=== PATIENT | female | born 1965 | race African-American/Black ===

== ENCOUNTER 2018-02-03 12:17 | Emergency (ER) | payer SELFPAY ==
[2018-02-03 12:22] VITALS: TEMP 97.8; BMI 29.2
[2018-02-03] MEDS ORDERED: ONDANSETRON 4 MG/2 ML VIAL IVPUSH ONE (13:03)
[2018-02-03] MEDS ORDERED: SODIUM CHLORIDE 1,000 ML IV STA (13:03)
[2018-02-03] MEDS ORDERED: FAMOTIDINE 20 MG/50 ML IVPB 20 MG/50 ML MG IVPB ONE ×2 (13:03→13:16)
[2018-02-03] MEDS ORDERED: MAG HYDROX/AL HYDROX/SIMETH -MYLANTA- ORAL SUSPENSION PO ONE (13:05)
--- NOTE | 2018-02-03 13:10 | PDOC ---
History of Present Illness - General Chief Complaint: Pain Stated Complaint: ABD PAIN, RT ARM PAIN Time Seen by Provider: 02/03/18 12:52 History Source: Patient Exam Limitations: No Limitations - History of Present Illness Initial Comments: 02/03/18 13:09 Patient is a 52F with history of pituitary tumor (on cabergoline) here today complaining of epigastric pain and neck pain. She describes the epigastric abdominal pain that as a burning that has been a problem for over a month. She states the pain often wakes her up at night. She denies pain with urination. Denies fevers, chills, vomiting, constipation diarrhea. She describes her neck pain as a shooting pain that goes to her left hand. She denies focal weakness. She says she has been diagnosed with radiculopathy. She states that her neck pain has been an issue for months. She says that she takes a large amount of ibuprofen and aspirin for her pain, but this has not improved her pain. Past History - Past Medical History Allergies/Adverse Reactions: Allergies Allergy/AdvReac Type Severity Reaction Status Date / Time No Known Allergies Allergy Verified 02/03/18 12:22 Home Medications: Ambulatory Orders Cabergoline 0.25 mg PO ASDIR 01/12/15 COPD: No Other medical history: pituitary benign tumor - Suicide/Smoking/Psychosocial Hx Smoking History: Never smoked Have you smoked in the past 12 months: No Hx Alcohol Use: No Substance Use Type: None Review of Systems - Review of Systems Comments:: 02/03/18 13:18 GENERAL/CONSTITUTIONAL: No fever or chills. No weakness. HEAD, EYES, EARS, NOSE AND THROAT: No change in vision. No sore throat. CARDIOVASCULAR: No chest pain or shortness of breath RESPIRATORY: No cough, wheezing, or hemoptysis. GASTROINTESTINAL: Positive for nausea. Negative for vomiting, diarrhea or constipation. GENITOURINARY: No dysuria, frequency, or change in urination. MUSCULOSKELETAL: No joint or muscle swelling or pain. Positive for neck pain. SKIN: No rash NEUROLOGIC: No headache, vertigo, loss of consciousness, or change in strength/ sensation. ENDOCRINE: No increased thirst. No abnormal weight change ALLERGIC/IMMUNOLOGIC: No hives or skin allergy. *Physical Exam - Vital Signs Last Vital Signs Temp Pulse Resp BP Pulse Ox 97.8 F 87 18 154/101 99 02/03/18 12:20 02/03/18 12:20 02/03/18 12:20 02/03/18 12:20 02/03/18 12:20 - Physical Exam Comments: 02/03/18 13:19 GENERAL: Awake, alert, and fully oriented, in no acute distress HEAD: No signs of trauma, normocephalic, atraumatic EYES: PERRLA, EOMI, sclera anicteric, conjunctiva clear ENT: Auricles normal inspection, hearing grossly normal, nares patent, oropharynx clear without exudates. Moist mucosa NECK: Normal ROM, supple, no lymphadenopathy, JVD, or masses LUNGS: No distress, speaks full sentences, clear to auscultation bilaterally HEART: Regular rate and rhythm, normal S1 and S2, no murmurs, rubs or gallops, peripheral pulses normal and equal bilaterally. ABDOMEN: Soft, nontender. No guarding, no rebound. No masses EXTREMITIES: Normal inspection, Normal range of motion, no edema. No clubbing or cyanosis. NEUROLOGICAL: Cranial nerves II through XII grossly intact. Normal speech, normal gait, no focal sensorimotor deficits SKIN: Warm, Dry, normal turgor, no rashes or lesions noted. ED Treatment Course - LABORATORY CBC & Chemistry Diagram: 02/03/18 13:15 02/03/18 13:15 Medical Decision Making - Medical Decision Making 02/03/18 13:21 Patient is 52F with history of pituitary adenoma here today with neck and abdominal pain. Vital signs stable and normal. Nontender on exam. Believe pain is not cardiac, but only way to link the neck and epigastric pain is with a cardiac etiology. Very low risk, no chest pain. Abdominal pain most likely gastritis secondary to nsaid use, will evaluate for pancreatitis, uti, pyelo with abdominal labs. Will do troponin, ekg, and cxr. Will treat with fluids, zofran, maalox, pepcid. Do not believe neck pain has emergent etiology with chronic nature. 02/03/18 13:24 EKG shows normal sinus rhythm with rate of 95. No st elevations or depressions, poor baseline in I, II, III. Normal TN/QRS/QTc. 02/03/18 13:59 CXR shows no acute pathology. 02/03/18 14:17 Laboratory Tests 02/03/18 02/03/18 02/03/18 13:15 13:15 13:15 WBC 5.2 Hgb 15.3 D Hct 44.6 Plt Count 280 D BUN 12 Creatinine 0.9 Calcium 10.8 H Troponin I Urine WBC (Auto) 1 Urine RBC (Auto) None 02/03/18 13:15 WBC Hgb Hct Plt Count BUN Creatinine Calcium Troponin I < 0.02 Urine WBC (Auto) Urine RBC (Auto) CBC normal. CMP reassuring, but calcium slightly elevated. Troponin undetectable. 02/03/18 14:21 Patient states that she feels better, asking to go home. Advised against taking large amounts of NSAIDs in the future and advised to follow up with her primary care provider. *DC/Admit/Observation/Transfer Diagnosis at time of Disposition: Abdominal pain - Discharge Dispostion Disposition: HOME Condition at time of disposition: Good Admit: No - Referrals - Patient Instructions Printed Discharge Instructions: DI for Acute Abdomen Additional Instructions: You were seen today in the ED for abdominal pain and neck pain. Please return if you have any new, worsening or concerning symptoms. Please limit how much ibuprofen and aspirin that you take in the future, as these were contributing to your abdominal pain. Please try taking tylenol, as directed on the label, instead. Please call your primary care provider to follow up on you neck pain on Monday. - Post Discharge Activity
--- NOTE | 2018-02-03 13:13 | PDOC ---
Attending Attestation - Resident Resident Name: Ariel Painting - ED Attending Attestation I have performed the following: I have examined & evaluated the patient, The case was reviewed & discussed with the resident, I agree w/resident's findings & plan, Exceptions are as noted - HPI HPI: 02/03/18 16:43 This is a 52-year-old female with no significant past medical history presented to emergency department with a complaint of epigastric pain. Patient states she's had these symptoms for some time, however they're worsening. She notes left upper extremity pain, radiating from her neck. Patient denies any head or neck trauma. Patient denies motor vehicle collision. Patient denies weakness or numbness. Patient states she takes lots of Motrin, aspirin for her pain. No prior GI workup. - Physicial Exam PE: 02/03/18 16:44 Upon my assessment, patient states she feels much better, epigastric pain has completely resolved GENERAL: The patient is in no acute distress. LUNGS: Breath sounds equal, clear to auscultation bilaterally. No wheezes, and no crackles. HEART:Regular rate and rhythm, normal S1 and S2 without murmur, rub or gallop. ABDOMEN: Soft, nontender, normoactive bowel sounds. EXTREMITIES: Normal range of motion, no edema. No clubbing or cyanosis. No erythema, or tenderness. NEUROLOGICAL: Cranial nerves II through XII grossly intact. Normal speech. No focal neurological deficits. - Medical Decision Making 02/03/18 16:45 This is a 52-year-old female presented to emergency department with a complaint of epigastric pain which has been chronic and worsening. Patient also reports left upper extremity pain. Left upper extremity pain is impressive for more than 1 year, she was previously seen at an urgent care for this, has not followed up with her primary care physician. Patient's epigastric pain seems likely to be due to gastritis related to NSAID use Patient has a limited NSAID use. Patient asked to take PPI Follow up with PMD 02/03/18 17:00 EKG: Sinus rhythm, rate of 63 bpm, axis is normal Intervals are normal, no ST elevations or depression, T waves are nonischemic
[2018-02-03] MEDS ORDERED: MAG HYDROX/AL HYDROX/SIMETH 30 ML UNIT-DOSE CUP ONE (13:15)
[2018-02-03] MEDS ORDERED: ONDANSETRON 4 MG/2 ML VIAL ONE (13:15)
[2018-02-03 13:19] LABS: BASO % 0.7 % (0-2.0); EOS % 3.1 % (0-4.5); HEMATOCRIT 44.6 % (32.4-45.2); HEMOGLOBIN 15.3 GM/dL (10.7-15.3); LYMPH % 52.2 % (8-40); MCH 30.8 pg (25.7-33.7); MCHC 34.3 g/dl (32.0-36.0); MEAN PLT VOLUME 8.6 fl (7.5-11.1); MONO % 7.7 % (3.8-10.2); NEUT % 36.3 % (42.8-82.8); PLATELET COUNT 280 K/MM3 (134-434); RBC 4.96 M/mm3 (3.60-5.2); RDW 12.8 % (11.6-15.6); WHITE BLOOD COUNT 5.2 K/mm3 (4.0-10.0)
[2018-02-03 13:21] LABS: URINE APPEARANCE CLEAR; URINE BILIRUBIN NEGATIVE (<2.0 mg/dL); URINE BLOOD NEGATIVE (NEGATIVE); URINE COLOR YELLOW; URINE GLUCOSE (UA) NEGATIVE (NEGATIVE); URINE KETONE TRACE (NEGATIVE); URINE LEUK ESTERASE TRACE (NEGATIVE); URINE NITRITE NEGATIVE (NEGATIVE); URINE PROTEIN NEGATIVE (NEGATIVE)
[2018-02-03 13:30] LABS: EPI CELLS RARE /HPF (FEW); URINE MUCUS RARE
[2018-02-03 14:05] LABS: ALBUMIN 4.3 g/dl (3.4-5.0); ALK PHOS 95 U/L (45-117); ANION GAP 7 (8-16); BILIRUBIN,TOTAL 0.4 mg/dL (0.2-1.0); BLOOD UREA NITROGEN 12 mg/dL (7-18); CALCIUM 10.8 mg/dL (8.5-10.1); CHLORIDE 109 mmol/L (98-107); CO2 25 mmol/L (21-32); CREATININE 0.9 mg/dL (0.55-1.02); GLUCOSE,RANDOM 87 mg/dL (74-106); POTASSIUM 4.1 mmol/L (3.5-5.1); SGOT/AST 11 U/L (15-37); SGPT/ALT 27 U/L (12-78); SODIUM 141 mmol/L (136-145); TOT PROT 7.9 g/dl (6.4-8.2)
[2018-02-03 14:08] LABS: LIPASE 227 U/L (73-393)
[2018-02-03 14:34] VITALS: BP 165/94; PULSE 63
--- NOTE | 2018-02-04 16:14 | EKG ---
Test Reason : Blood Pressure : / mmHG Vent. Rate : 063 BPM Atrial Rate : 063 BPM P-R Int : 130 ms QRS Dur : 086 ms QT Int : 416 ms P-R-T Axes : 030 030 043 degrees QTc Int : 425 ms NORMAL SINUS RHYTHM MINIMAL VOLTAGE CRITERIA FOR LVH, MAY BE NORMAL VARIANT BORDERLINE ECG WHEN COMPARED WITH ECG OF 12-JAN-2015 21:20, NO SIGNIFICANT CHANGE WAS FOUND Confirmed by MD ELIEZER, ZACKARY ([id number]) on 02/04/2018 4:14:37 PM Referred By: Confirmed By:ZACKARY MARTINS MD
== END 2018-02-03 14:49 | disposition home or self-care (01) ==
LOC: JER 12:17
PROC: 3E033GC Introduction of Other Therapeutic Substance into Peripheral Vein, Percutaneous Approach (ICD-10-PCS; principal; 2018-02-03)
PROC: 3E033GC Introduction of Other Therapeutic Substance into Peripheral Vein, Percutaneous Approach (ICD-10-PCS; 2018-02-03)
DX: R10.13 Epigastric pain (principal); D36.7 Benign neoplasm of other specified sites; D35.2 Benign neoplasm of pituitary gland
CPT/HCPCS: 36415; 71046-TC-FY; 80053; 81003; 81015; 82550; 82553; 83690; 84484; 85025; 93005; 93010; 99283-25; J7030

== ENCOUNTER 2019-03-21 18:36 | Emergency (ER) | payer OTHER ==
[2019-03-21 18:44] VITALS: BP 165/92; PULSE 89; TEMP 98.7; BMI 29.8
[2019-03-21] MEDS ORDERED: IBUPROFEN 400 MG TABLET (FP) PO ONE ×2 (18:45→18:58)
--- NOTE | 2019-03-21 18:45 | PDOC ---
Rapid Medical Evaluation Medical Evaluation: Allergies Allergy/AdvReac Type Severity Reaction Status Date / Time No Known Allergies Allergy Verified 02/03/18 12:22 I have performed a brief in-person evaluation of this patient. The patient presents with a chief complaint of: C/O pain from R hip down to feet for >1 month (also some pain in L hip); denies trauma, back pain; has been using Motrin and Tylenol; pain got worse today; took Advil around 12 PM Pertinent physical exam findings: No spine vertebral tenderness, FROM of B/L knees, no calf tenderness, no pedal edema I have ordered the following: Xray, Motrin The patient will proceed to the ED for further evaluation. 03/21/19 18:40
--- NOTE | 2019-03-21 19:49 | PDOC ---
History of Present Illness - General Chief Complaint: Pain, Acute Stated Complaint: LEG PAIN Time Seen by Provider: 03/21/19 18:40 History Source: Patient Exam Limitations: No Limitations Past History - Travel Traveled outside of the country in the last 30 days: No Close contact w/someone who was outside of country & ill: No - Past Medical History Allergies/Adverse Reactions: Allergies Allergy/AdvReac Type Severity Reaction Status Date / Time No Known Allergies Allergy Verified 02/03/18 12:22 Home Medications: Ambulatory Orders Cabergoline 0.25 mg PO ASDIR 01/12/15 Methylprednisolone [Medrol Dose Sascha] 4 mg PO ASDIR #21 tablet 03/21/19 COPD: No HTN: Yes - Surgical History Gastric Stapling: No - Immunization History Immunization Up to Date: No - Suicide/Smoking/Psychosocial Hx Smoking History: Never smoked Have you smoked in the past 12 months: No Information on smoking cessation initiated: No Hx Alcohol Use: No Drug/Substance Use Hx: No Substance Use Type: None Review of Systems - Review of Systems Able to Perform ROS?: Yes Comments:: 03/21/19 19:43 CONSTITUTIONAL: Absent: fever, chills, diaphoresis, generalized weakness, malaise, loss of appetite HEENT: Absent: rhinorrhea, nasal congestion, throat pain, throat swelling, difficulty swallowing, mouth swelling, ear pain, eye pain, visual Changes MUSCULOSKELETAL: Present: lower leg pain Absent: myalgia, arthralgia, joint swelling SKIN: Absent: rash, itching, pallor NEUROLOGIC: Absent: headache, focal weakness or paresthesias, dizziness, unsteady gait, seizure, mental status changes, bladder or bowel incontinence PSYCHIATRIC: Absent: anxiety, depression, suicidal or homicidal ideation, hallucinations. Is the patient limited [place] proficient: No *Physical Exam - Vital Signs Last Vital Signs Temp Pulse Resp BP Pulse Ox 98.7 F 89 18 165/92 99 03/21/19 18:41 03/21/19 18:41 03/21/19 18:41 03/21/19 18:41 03/21/19 18:41 - Physical Exam Comments: 03/21/19 19:47 GENERAL: Well developed, well nourished. Awake and alert. No acute distress. HEENT: Normocephalic, atraumatic. PERRLA, EOMI. No conjunctival pallor. Sclera are non- icteric. Moist mucous membranes. Oropharynx is clear. NECK: MUSCULOSKELETAL TTP at the hip joints b/l. Normal range of motion at all joints. No bony deformities or tenderness. No CVA tenderness. EXTREMITIES: 2+ DP pulses. No cyanosis. No clubbing. No edema. No calf tenderness. SKIN: Warm and dry. Normal capillary refill. No rashes. No jaundice. NEUROLOGICAL: Alert, awake, appropriate. Cranial nerves 2-12 intact. No deficits to light touch and temperature in face, upper extremities and lower extremities. No motor deficits in the in face, upper extremities and lower extremities. Normoreflexic in the upper and lower extremities. Normal speech. Toes are down- going bilaterally. Gait is normal without ataxia. PSYCHIATRIC: Cooperative. Good eye contact. Appropriate mood and affect. ED Treatment Course - Medications Given in the ED: ED Medications Discontinued Medications Generic Name Dose Route Start Last Admin Trade Name Freq PRN Reason Stop Dose Admin Ibuprofen 800 mg 03/21/19 18:45 03/21/19 19:00 Motrin - PO 03/21/19 18:46 800 mg ONCE ONE Administration Medical Decision Making - Medical Decision Making 03/21/19 19:51 The patient is a 53 y/o F who presents to the ER with bilateral hip pain and calf pain for four months. she states that the pain has increased in severity over the last 2 days. She has been taking Tylenol and Aleve with little relief of her symptoms. She states that her pain gets worse the longer she walks. She also noticed it gets worse when she walks up stairs. She describes the pain as a burning shooting pain that goes from her hips all the way down to the bottom of her feet. Denies fevers, chills, numbness and tingling to the affected extremities and weakness to the affected extremities. A/P: Leg pain On exam patient with tenderness to palpation of the hip joints with Prachi testing. No palpable spasm on back exam. No tenderness to palpation of the lower back muscles. X-rays of the hip show no arthritis. Pain relieved somewhat with Motrin. Differential diagnosis includes but is not limited to spinal stenosis, sciatica , claudication. Distal pulses 2+ in the feet bilaterally. We will give a steroid pack at this time. Patient to follow-up with her primary care doctor for further testing. I discussed the physical exam findings, ancillary test results and final diagnoses with the patient. I answered all of the patient's questions. The patient was satisfied with the care received and felt comfortable with the discharge plan and treatment plan. The Patient agrees to follow up with the primary care physician/specialist within 24-72 hours. Return precautions were given. *DC/Admit/Observation/Transfer Diagnosis at time of Disposition: Leg pain, bilateral - Discharge Dispostion Disposition: HOME Condition at time of disposition: Stable Decision to Admit order: No - Prescriptions Prescriptions: Methylprednisolone [Medrol Dose Sascha] 4 mg PO ASDIR #21 tablet - Referrals Referrals: Maribel Mullins [Primary Care Provider] - - Patient Instructions Printed Discharge Instructions: DI for Leg Pain Additional Instructions: You were evaluated for your leg pain today Your x-rays did not show arthritis This may be sciatica; we will give you steroids. Take the medication as prescribed You may also have claudication, or intermittant decreased blood flow to the legs Please call your primary care doctor Tomorrow Return to the ER for worsening pain, shortness of breath, or if you have any changes in your symptoms - Post Discharge Activity
== END 2019-03-21 20:15 | disposition home or self-care (01) ==
LOC: JERFT 18:36
DX: M25.552 Pain in left hip (principal); M25.551 Pain in right hip; M25.562 Pain in left knee; M25.561 Pain in right knee
CPT/HCPCS: 73523-TC-FY; 99281-25

== ENCOUNTER 2021-06-26 06:57 | Emergency (ER) | payer OTHER ==
[2021-06-26 07:48] VITALS: BP 137/74; PULSE 70; TEMP 98.4; BMI 26.4
== END 2021-06-26 08:04 | disposition home or self-care (01) ==
LOC: JER 06:57
DX: H60.92 Unspecified otitis externa, left ear (principal)
CPT/HCPCS: 99283-25